=== PATIENT | female | born 1965 | race Hispanic/Latino ===

== ENCOUNTER 2019-05-08 07:00 | Day surgery (SDC) | payer MEDICAID ==
[~2019-05-08] VITALS: Ht 149.9 cm; Wt 83.9 kg
[~2019-05-08 07:00] MED LIST: ALPR-409 PO; ARIP10TA8 PO; BETAMETHASONE; BUSP15TA3 PO; CALC-877 PO; CALCIUM OYSTER SHELL PO; CLON0.122 PO; CYCL10 PO; DULO20CA18 PO; GABA100C PO; GLUCOPHAGE PO; IBUP-2077 PO; INSU100V12 SQ; INVOK100TB PO; KAOPECTATE; LISI-617 PO; LORA10CA9 PO; MECLIZINE; MOME17SP10 NS; MULT-1077 PO; NORT25CA3 PO; OMEP-50 PO; PIOG30TA70 PO; PREG100C PO; SAXA5TAB PO; SODIUM CHLORIDE 0.9% 1000ML 1,000 ML IV ONE; SOLI5 PO; TRAM50TA4 PO; TRAZ300T2 PO; ZOLP5TAB2 PO
[2019-05-08 09:16] VITALS: BP 127/57
[2019-05-08 11:12] VITALS: BP 103/57
[2019-05-08 11:17] VITALS: BP 101/58
[2019-05-08 11:22] VITALS: BP 110/62
[2019-05-08 11:27] VITALS: BP 119/65
--- NOTE | 2019-05-08 11:34 | NUR ---
dc pt dc home via [place], accompanied by nito, pt denies anypain or discomforts
== END 2019-05-08 11:34 | disposition home or self-care (01) ==
LOC: DAH 07:00 → ENDO 07:00
PROVIDERS: ATTEND Internal Medicine Gastroenterology
DX: K62.0 Anal polyp (principal); K57.30 Diverticulosis of large intestine without perforation or abscess without bleeding; K64.0 First degree hemorrhoids; I10 Essential (primary) hypertension; F32.9 Major depressive disorder, single episode, unspecified; E11.9 Type 2 diabetes mellitus without complications; M81.0 Age-related osteoporosis without current pathological fracture; M19.90 Unspecified osteoarthritis, unspecified site; F41.9 Anxiety disorder, unspecified; E66.9 Obesity, unspecified; Z79.4 Long term (current) use of insulin; Z87.442 Personal history of urinary calculi; Z86.73 Personal history of transient ischemic attack (TIA), and cerebral infarction without residual deficits; Z90.49 Acquired absence of other specified parts of digestive tract; Z98.890 Other specified postprocedural states; Z79.899 Other long term (current) drug therapy; Z98.84 Bariatric surgery status; Z86.010 Personal history of colon polyps; Z82.49 Family history of ischemic heart disease and other diseases of the circulatory system; Z83.3 Family history of diabetes mellitus
CPT/HCPCS: 45380; 82948 ×2; 88305; 93005; A4606; J7030